=== PATIENT | male | born 2000 | race American Indian/Alaskan Native ===

== ENCOUNTER 2021-06-02 08:11 | Emergency (ER) | payer SELFPAY ==
[2021-06-02 08:18] VITALS: BP 132/94
--- NOTE | 2021-06-02 08:28 | Emergency Department Report ---
ED Abdominal Pain HPI - General Chief Complaint: Abdominal Pain Stated Complaint: ABD PAIN X 4DAYS Time Seen by Provider: 06/02/21 08:23 Source: patient Mode of arrival: Ambulatory Limitations: No Limitations - History of Present Illness Initial Comments: The patient was evaluated in the emergency department for symptoms described in the history of present illness. He/she was evaluated in the context of the global COVID-19 pandemic, which necessitated consideration that the patient might be at risk for infection with the virus that causes COVID-19. Institutional protocols and algorithms that pertain to the evaluation of patients at risk for COVID-19 are in a state of rapid change based on information released by regulatory bodies including the CDC and federal and state organizations. These policies and algorithms were followed during the jeffrey amaya's care in the emergency department. Please note that these policies, procedures and recommendations changed on a rapid basis. 21-year-old -[place] male presents to the emergency room complaining of 4-day history of abdominal pain. Patient states he was drinking some red meat which is alcohol him and took some [id number] pain medicine and now has been having abdominal pain located diffusely. Patient denies any nausea no vomiting no diarrhea or constipation. Patient denies any dysuria no penile discharge. He states the pain is sharp constant worse when he stretches and better when he lies down. Patient denies any known drug allergies currently takes no meds on a daily basis and has no past medical history. Patient has a social history of EtOH does not smoke cigarettes does not smoke marijuana. Vital signs are stable 132/94 heart rate 74 respiration 16 and oxygen at 99% on room air. MD Complaint: abdominal pain Onset/Timin -: days(s) Location: diffuse Radiation: none Severity scale (0 -10): 10 Quality: sharp Consistency: constant Improves With: rest Worsens With: other (Stretches) Associated Symptoms: denies other symptoms - Related Data Allergies Allergy/AdvReac Type Severity Reaction Status Date / Time No Known Allergies Allergy Unverified 06/02/21 08:24 ED Review of Systems ROS: Stated complaint: ABD PAIN X 4DAYS Other details as noted in HPI Comment: All other systems reviewed and negative ED Physical Exam - General Limitations: No Limitations General appearance: alert, in no apparent distress - Head Head exam: Present: atraumatic, normocephalic - Eye Eye exam: Present: normal appearance - ENT ENT exam: Present: mucous membranes moist, normal external ear exam - Neck Neck exam: Present: normal inspection - Respiratory Respiratory exam: Present: normal lung sounds bilaterally. Absent: respiratory distress, wheezes, chest wall tenderness, accessory muscle use - Cardiovascular Cardiovascular Exam: Present: regular rate - GI/Abdominal GI/Abdominal exam: Present: soft, tenderness, normal bowel sounds. Absent: distended, guarding, rebound - Extremities Exam Extremities exam: Present: normal inspection - Back Exam Back exam: Present: normal inspection - Neurological Exam Neurological exam: Present: alert, oriented X3, normal gait - Psychiatric Psychiatric exam: Present: normal affect, normal mood - Skin Skin exam: Present: warm, dry, intact, normal color. Absent: rash ED Course Vital Signs 06/02/21 06/02/21 08:17 08:18 Temperature 98.0 F 98.0 F Pulse Rate 74 74 Respiratory 16 16 Rate Blood Pressure 132/94 Blood Pressure 132/94 [Left] O2 Sat by Pulse 99 99 Oximetry ED Medical Decision Making - Lab Data Result diagrams: 06/02/21 08:31 06/02/21 08:31 - Medical Decision Making 21-year-old -[place] male presents to the emergency room complaining of 4-day history of abdominal pain. Patient states he was drinking some red meat which is alcohol him and took some [id number] pain medicine and now has been having abdominal pain located diffusely. Patient denies any nausea no vomiting no diarrhea or constipation. Patient denies any dysuria no penile discharge. He states the pain is sharp constant worse when he stretches and better when he lies down. Patient denies any known drug allergies currently takes no meds on a daily basis and has no past medical history. Patient has a social history of EtOH does not smoke cigarettes does not smoke marijuana. Vital signs are stable 132/94 heart rate 74 respiration 16 and oxygen at 99% on room air. CBC CMP urinalysis lipase has been ordered. Critical care attestation.: If time is entered above; I have spent that time in minutes in the direct care of this critically ill patient, excluding procedure time. ED Disposition Clinical Impression: Abdominal pain Disposition: AGAINST MEDICAL ADVICE Is pt being admited?: No Does the pt Need Aspirin: No Condition: Undetermined Referrals: PRIMARY CARE, [Primary Care Provider] - 3-5 Days Forms: AMA Form
[2021-06-02 08:44] LABS: Basophils % (Auto) 0.8 % (0.0-1.8); Eosinophils % (Auto) 0.4 % (0.0-4.3); Hematocrit 45.2 % (35.5-45.6); Hemoglobin 15.5 gm/dl (11.8-15.2); Lymphocytes # (Auto) 2.2 K/mm3 (1.2-5.4); Lymphocytes % (Auto) 39.9 % (13.4-35.0); Mean Corpuscular HGB Conc 34 % (32-34); Mean Corpuscular Volume 96 fl (84-94); Monocytes # (Auto) 0.5 K/mm3 (0.0-0.8); Monocytes % (Auto) 9.7 % (0.0-7.3); Platelet Count 257 K/mm3 (140-440); Red Blood Count 4.72 M/mm3 (3.65-5.03); Red Cell Distribution Width 12.1 % (13.2-15.2)
[2021-06-02 09:06] LABS: Alanine Aminotransferase 19 units/L (7-56); Albumin 4.9 g/dL (3.9-5); BUN/Creatinine Ratio 6; Blood Urea Nitrogen 7 mg/dL (9-20); Calcium 9.8 mg/dL (8.4-10.2); Hemolysis Index 7
[2021-06-02] MEDS ORDERED: ACETAMINOPHEN 325 MG TAB PO ONE (10:11)
== END 2021-06-02 10:28 | disposition left against medical advice (07) ==
LOC: ED 08:11
DX: R10.84 Generalized abdominal pain (principal)
CPT/HCPCS: 36415; 80053; 83690; 85025; 99283